=== PATIENT | female | born 1995 | race Caucasian/White ===

== ENCOUNTER 2018-08-13 13:29 | Observation (INO) | payer MEDICARE, MEDICAID ==
[2018-08-13] MEDS ORDERED: Ondansetron 4 MG/2 ML SDV IVPUSH ONE ×2 (14:21→16:26)
--- NOTE | 2018-08-13 14:27 | EDM.PDOC ---
ED HPI GENERAL MEDICAL PROBLEM - General Chief Complaint: Gastrointestinal Problem Stated Complaint: ADVERSE REACTION TO MEDS Time Seen by Provider: 08/13/18 14:27 Source of Information: Reports: Patient History Limitations: Reports: No Limitations - History of Present Illness INITIAL COMMENTS - FREE TEXT/NARRATIVE: pt arrived with very severe diarrhea. She is chilling. Her stool has been completly watery. She has had about 12 stools prior to arriving. Onset: Sudden Duration: Hour(s): Location: Reports: Abdomen Associated Symptoms: Reports: Nausea/Vomiting, Other (severe diarrhea. ) Abdominal Pain Score (Numeric/FACES): 5 - Related Data Allergies Allergy/AdvReac Type Severity Reaction Status Date / Time No Known Allergies Allergy Verified 08/13/18 14:03 Past Medical History HEENT History: Reports: Other (See Below) Other HEENT History: freq tonsilitis will have t and a on 2018 [employer] History: Reports: - Past Surgical History GI Surgical History: Reports: Appendectomy, Cholecystectomy Female Surgical History: Reports: Section Social & Family History - Tobacco Use Smoking Status *Q: Former Smoker Years of Tobacco use: 4 Used Tobacco, but Quit: Yes Month/Year Tobacco Last Used: 09/2018 Second Hand Smoke Exposure: No - Caffeine Use Caffeine Use: Reports: None - Recreational Drug Use Recreational Drug Use: Yes Drug Use in Last 12 Months: No Recreational Drug Type: Reports: Marijuana/Hashish Recreational Drug Last Use: 2007 ED ROS GENERAL - Review of Systems Review Of Systems: See Below Constitutional: Reports: Decreased Appetite, Other (pt has been vomiting all day. ) HEENT: Reports: No Symptoms Respiratory: Reports: No Symptoms Cardiovascular: Reports: No Symptoms Endocrine: Reports: No Symptoms GI/Abdominal: Reports: Diarrhea, Nausea, Vomiting : Reports: No Symptoms Musculoskeletal: Reports: No Symptoms Skin: Reports: No Symptoms Neurological: Reports: No Symptoms ED EXAM, GI/ABD - Physical Exam Exam: See Below Text/Narrative:: pt arrived with diarrhea that is almost constant. She has not held fluids down all day. Exam Limited By: No Limitations General Appearance: Alert, Moderate Distress Ears: Normal TMs Nose: Normal Inspection Throat/Mouth: Normal Inspection Head: Atraumatic Neck: Normal Inspection Respiratory/Chest: No Respiratory Distress Cardiovascular: Regular Rate, Rhythm GI/Abdominal Exam: Soft, Tender (Female) Exam: Deferred Rectal (Female) Exam: Deferred Back Exam: Normal Inspection Extremities: Normal Inspection Neurological: Alert, Oriented Course - Vital Signs Last Recorded V/S: Last Vital Signs Temp 37.2 C 08/13/18 17:01 Pulse 111 H 08/13/18 17:01 Resp 20 08/13/18 17:01 BP 126/73 08/13/18 17:01 Pulse Ox 95 08/13/18 17:01 - Orders/Labs/Meds Orders: Active Orders 24 hr Category Date Time Status Chest 1V Frontal [CR] Stat Exams 08/13/18 17:27 Taken CULTURE STOOL + SHIGATOX [RM] Stat Lab 08/13/18 17:42 Ordered INFLUENZA A+B AG SCREEN [RM] Stat Lab 08/13/18 17:24 Ordered LACTIC ACID [CHEM] Stat Lab 08/13/18 17:47 Ordered Sodium Chloride 0.9% [Normal Saline] 1,000 ml Med 08/13/18 14:30 Active IV ASDIRECTED Sodium Chloride 0.9% [Normal Saline] 1,000 ml Med 08/13/18 16:30 Active IV ASDIRECTED Sodium Chloride 0.9% [Normal Saline] 1,000 ml Med 08/13/18 18:15 Active IV ASDIRECTED Medication Orders Sodium Chloride (Normal Saline) 1,000 mls @ 999 mls/hr IV ASDIRECTED LUDA Last Admin: 08/13/18 14:32 Dose: 999 mls/hr Sodium Chloride (Normal Saline) 1,000 mls @ 999 mls/hr IV ASDIRECTED [facility] Last Admin: 08/13/18 17:01 Dose: 999 mls/hr Sodium Chloride (Normal Saline) 1,000 mls @ 350 mls/hr IV ASDIRECTED [facility] Labs: Laboratory Tests 08/13/18 08/13/18 08/13/18 Range/Units 14:20 14:20 15:27 WBC 12.9 H (4.5-11.0) K/uL RBC 6.12 H (3.30-5.50) M/uL Hgb 17.1 H (12.0-15.0) g/dL Hct 50.1 H (36.0-48.0) % MCV 82 (80-98) fL MCH 28 (27-31) pg MCHC 34 (32-36) % Plt Count 298 (150-400) K/uL Neut % (Auto) 86 H (36-66) % Lymph % (Auto) 6 L (24-44) % [place] % (Auto) 7 H (2-6) % Eos % (Auto) 0 L (2-4) % Baso % (Auto) 0 (0-1) % Sodium 139 L (140-148) mmol/L Potassium 3.7 (3.6-5.2) mmol/L Chloride 101 (100-108) mmol/L Carbon Dioxide 23 (21-32) mmol/L Anion Gap 18.7 H (5.0-14.0) mmol/L BUN 15 (7-18) mg/dL Creatinine 0.9 (0.6-1.0) mg/dL Est Cr Clr Drug Dosing 97.23 mL/min Estimated GFR (MDRD) > 60 (>60) Glucose 118 H (74-106) mg/dL Calcium 10.5 H (8.5-10.1) mg/dL Total Bilirubin 1.1 H (0.2-1.0) mg/dL AST 16 (15-37) U/L ALT 27 (12-78) U/L Alkaline Phosphatase 90 (46-116) U/L Total Protein 9.2 H (6.4-8.2) g/dL Albumin 4.8 (3.4-5.0) g/dL Globulin 4.4 H (2.3-3.5) g/dL Albumin/Globulin Ratio 1.1 L (1.2-2.2) Urine Color Yellow Urine Appearance Slightly cloudy Urine pH 5.0 (4.5-8.0) Ur Specific [place] 1.030 (1.008-1.030) Urine Protein Negative (NEGATIVE) mg/dL Urine Glucose (UA) Normal (NEGATIVE) mg/dL Urine Ketones 15 H (NEGATIVE) mg/dL Urine Occult Blood Small (NEGATIVE) Urine Nitrite Negative (NEGATIVE) Urine Bilirubin Negative (NEGATIVE) Urine Urobilinogen Normal (NORMAL) mg/dL Ur Leukocyte Esterase Negative (NEGATIVE) Urine RBC 0-5 (0-5) Urine WBC Not seen (0-5) Ur Epithelial Cells Many Amorphous Sediment Many Urine Bacteria Few Urine Mucus Many Urine Other See note Meds: Medications Generic Name Dose Route Start Last Admin Trade Name Freq PRN Reason Stop Dose Admin Sodium Chloride 1,000 mls @ 999 mls/hr 08/13/18 14:30 08/13/18 14:32 Normal Saline IV 999 mls/hr ASDIRECTED LUDA Administration Sodium Chloride 1,000 mls @ 999 mls/hr 08/13/18 16:30 08/13/18 17:01 Normal Saline IV 999 mls/hr ASDIRECTED LUDA Administration Sodium Chloride 1,000 mls @ 350 mls/hr 08/13/18 18:15 Normal Saline IV ASDIRECTED LUDA Discontinued Medications Generic Name Dose Route Start Last Admin Trade Name Rekha PRN Reason Stop Dose Admin Ketorolac Tromethamine 30 mg 08/13/18 16:26 08/13/18 17:03 Toradol IVPUSH 08/13/18 16:27 30 mg ONETIME ONE Administration Ondansetron HCl 4 mg 08/13/18 14:21 08/13/18 14:31 Zofran IVPUSH 08/13/18 14:22 4 mg ONETIME ONE Administration Ondansetron HCl 4 mg 08/13/18 16:26 08/13/18 16:58 Zofran IVPUSH 08/13/18 16:27 4 mg ONETIME ONE Administration - Re-Assessments/Exams Free Text/Narrative Re-Assessment/Exam: 08/13/18 17:37 pt had a stool for clostrium which was neg. She has had about 8 stools since she gor here. She has still been quite nauseated. She has received Departure - Departure Time of Disposition: 18:02 Disposition: Admitted As Inpatient 64 Condition: Fair Clinical Impression: Dehydration, Flu, Reaction, drug, adverse - Discharge Information Referrals: Darcie Otoole MD [Primary Care Provider] - Forms: ED Department Discharge Care Plan Goals: admit to [facility]. - My Orders Last 24 Hours: My Active Orders 08/13/18 14:30 Sodium Chloride 0.9% [Normal Saline] 1,000 ml IV ASDIRECTED 08/13/18 16:30 Sodium Chloride 0.9% [Normal Saline] 1,000 ml IV ASDIRECTED 08/13/18 17:24 INFLUENZA A+B AG SCREEN [RM] Stat 08/13/18 17:27 Chest 1V Frontal [CR] Stat 08/13/18 17:42 CULTURE STOOL + SHIGATOX [RM] Stat 08/13/18 17:47 LACTIC ACID [CHEM] Stat 08/13/18 18:15 Sodium Chloride 0.9% [Normal Saline] 1,000 ml IV ASDIRECTED - Assessment/Plan Last 24 Hours: My Active Orders 08/13/18 14:30 Sodium Chloride 0.9% [Normal Saline] 1,000 ml IV ASDIRECTED 08/13/18 16:30 Sodium Chloride 0.9% [Normal Saline] 1,000 ml IV ASDIRECTED 08/13/18 17:24 INFLUENZA A+B AG SCREEN [RM] Stat 08/13/18 17:27 Chest 1V Frontal [CR] Stat 08/13/18 17:42 CULTURE STOOL + SHIGATOX [RM] Stat 08/13/18 17:47 LACTIC ACID [CHEM] Stat 08/13/18 18:15 Sodium Chloride 0.9% [Normal Saline] 1,000 ml IV ASDIRECTED
[2018-08-13] MEDS ORDERED: Sodium Chloride 0.9% 1,000 ML IV SCH ×3 (14:30→18:15)
[2018-08-13] MEDS ORDERED: Ketorolac 30 MG/ML SDV IVPUSH ONE (16:26)
--- NOTE | 2018-08-13 19:19 | PCM.HP ---
H&P History of Present Illness - General Date of Service: 08/13/18 Admit Problem/Dx: Admission Diagnosis/Problem Admission Diagnosis/Problem Dehydration Source of Information: Patient History Limitations: Reports: No Limitations - History of Present Illness Initial Comments - Free Text/Narative: Nausea, vomiting and diarrhea; this is a 22 year old female presented to ER for evaluation of symptoms. She had a pre-op on Friday, Aug 10, 2018. She was given script for Augmentin to treat a sinus and tonsil infection. She then developed nausea and diarrhea, which progressed to vomiting all day. Today. she was weak, didn't feel well and came to ER for evaluation. while in ER had 6 water stool and emesis once. Labs show dehydration, negative influenza A and B, negative C-Diff. plan to admit for IV fluids and anti-nausea medications. Patient has a [employer] worker for her Mental Health disabilities. Onset of Symptoms: Reports: Gradual Symptom Onset Date: 08/10/18 (start Augmentin) Duration of Symptoms: Reports: Day(s):, Getting Worse Location: Reports: Generalized Severity: Moderate Improves with: Reports: Medication, Other (given IV fluids and medication in ER improved) Worsens with: Reports: None Context: Reports: Other (nausea, vomiting, diarrhea after taking Augmentin.) Associated Symptoms: Reports: Fever/Chills, Headaches, Nausea/Vomiting, Weakness Abdominal Pain Score (Numeric/FACES): 5 - Related Data Allergies/Adverse Reactions: Allergies Allergy/AdvReac Type Severity Reaction Status Date / Time No Known Allergies Allergy Verified 08/13/18 14:03 Home Medications: Home Meds Amoxicillin/Clavulanate K [Augmentin 875-125 MG] 1 tab PO BID 08/13/18 [History] ClonazePAM [KlonoPIN] 0.25 mg PO DAILY 08/13/18 [History] ClonazePAM [KlonoPIN] 0.5 mg PO BEDTIME 08/13/18 [History] Pantoprazole [ProTONIX] 40 mg PO DAILY 08/13/18 [History] Polyethylene Glycol 3350 [MiraLAX] 1 dose PO ASDIRECTED 08/13/18 [History] Past Medical History HEENT History: Reports: Other (See Below) Other HEENT History: freq tonsilitis will have t and a on 2018 X [employer] History: Reports: - Past Surgical History GI Surgical History: Reports: Appendectomy, Cholecystectomy Female Surgical History: Reports: Section Social & Family History - Tobacco Use Smoking Status *Q: Former Smoker Years of Tobacco use: 4 Used Tobacco, but Quit: Yes Month/Year Tobacco Last Used: 09/2018 Second Hand Smoke Exposure: No - Caffeine Use Caffeine Use: Reports: None - Recreational Drug Use Recreational Drug Use: Yes Drug Use in Last 12 Months: No Recreational Drug Type: Reports: Marijuana/Hashish Recreational Drug Last Use: 2007 - Living Situation & Occupation Living situation: Reports: Single, with Family Occupation: Other (lives in [place] with her Boyfriend and her 5 year old son.) H&P Review of Systems - Review of Systems: Review Of Systems: See Below General: Reports: Chills, Malaise, Weakness HEENT: Reports: Headaches, Sore Throat (chronic tonsillitis, scheduled for surgery on 08/26/2018) Pulmonary: Reports: No Symptoms Cardiovascular: Reports: No Symptoms Gastrointestinal: Reports: Diarrhea (watery diarrhea x 14 , vomiting for hours at home and once in ER), Nausea, Vomiting Genitourinary: Reports: No Symptoms, Other (last menses 07/31/2019, no control) Musculoskeletal: Reports: No Symptoms Skin: Reports: No Symptoms Psychiatric: Reports: Anxiety (chronic) Neurological: Reports: Headache Hematologic/Lymphatic: Reports: No Symptoms Immunologic: Reports: No Symptoms Exam - Exam Exam: See Below - Vital Signs Vital Signs: Last Vital Signs Temp 37.2 C 08/13/18 17:01 Pulse 111 H 08/13/18 17:01 Resp 20 08/13/18 17:01 BP 126/73 08/13/18 17:01 Pulse Ox 95 08/13/18 17:01 Weight: 95.4 kg - Exam General: Alert, Oriented, Cooperative HEENT: PERRLA, Conjunctiva Clear, EACs Clear, EOMI, Hearing Intact, Mucosa Moist & [place], Nares Patent, Normal Nasal Septum, Posterior Pharynx Clear, TMs Clear, Other (tonsil enlargement, + white exudate is present) Neck: Supple, Trachea Midline, Lymphadenopathy (bilateral, non-tender) Lungs: Clear to Auscultation, Normal Respiratory Effort Cardiovascular: Regular Rate, Regular Rhythm, Normal S1, Normal S2 GI/Abdominal Exam: Normal Bowel Sounds, Soft, Non-Tender, No Organomegaly, No Distention, No Abnormal Bruit, No Mass, Pelvis Stable (Female) Exam: Deferred Rectal (Female) Exam: Deferred Back Exam: Normal Inspection, Full Range of Motion Extremities: Normal Inspection, Normal Range of Motion, Non-Tender, No Pedal Edema, Normal Capillary Refill Peripheral Pulses: 2+: Radial (L), Radial (R) Skin: Warm, Dry, Intact Neurological: Cranial Nerves Intact, Reflexes Equal Bilateral, Strength Equal Bilateral, Normal Gait, Normal Speech, Normal Tone, Sensation Intact Neuro Extensive - Mental Status: Alert, Oriented x3, Normal Mood/Affect, Normal Cognition, Memory Intact Neuro Extensive - Motor, Sensory, Reflexes: CN II-XII Intact, Normal Gait, Normal Reflexes Psychiatric: Alert, Normal Affect, Normal Mood - Patient Data Lab Results Last 24 hrs: Laboratory Results - last 24 hr 08/13/18 08/13/18 08/13/18 Range/Units 14:20 14:20 15:27 WBC 12.9 H (4.5-11.0) K/uL RBC 6.12 H (3.30-5.50) M/uL Hgb 17.1 H (12.0-15.0) g/dL Hct 50.1 H (36.0-48.0) % MCV 82 (80-98) fL MCH 28 (27-31) pg MCHC 34 (32-36) % Plt Count 298 (150-400) K/uL Neut % (Auto) 86 H (36-66) % Lymph % (Auto) 6 L (24-44) % [place] % (Auto) 7 H (2-6) % Eos % (Auto) 0 L (2-4) % Baso % (Auto) 0 (0-1) % Sodium 139 L (140-148) mmol/L Potassium 3.7 (3.6-5.2) mmol/L Chloride 101 (100-108) mmol/L Carbon Dioxide 23 (21-32) mmol/L Anion Gap 18.7 H (5.0-14.0) mmol/L BUN 15 (7-18) mg/dL Creatinine 0.9 (0.6-1.0) mg/dL Est Cr Clr Drug Dosing 97.23 mL/min Estimated GFR (MDRD) > 60 (>60) Glucose 118 H (74-106) mg/dL Lactic Acid (0.4-2.0) mmol/L Calcium 10.5 H (8.5-10.1) mg/dL Total Bilirubin 1.1 H (0.2-1.0) mg/dL AST 16 (15-37) U/L ALT 27 (12-78) U/L Alkaline Phosphatase 90 (46-116) U/L Total Protein 9.2 H (6.4-8.2) g/dL Albumin 4.8 (3.4-5.0) g/dL Globulin 4.4 H (2.3-3.5) g/dL Albumin/Globulin Ratio 1.1 L (1.2-2.2) Urine Color Yellow Urine Appearance Slightly cloudy Urine pH 5.0 (4.5-8.0) Ur Specific [place] 1.030 (1.008-1.030) Urine Protein Negative (NEGATIVE) mg/dL Urine Glucose (UA) Normal (NEGATIVE) mg/dL Urine Ketones 15 H (NEGATIVE) mg/dL Urine Occult Blood Small (NEGATIVE) Urine Nitrite Negative (NEGATIVE) Urine Bilirubin Negative (NEGATIVE) Urine Urobilinogen Normal (NORMAL) mg/dL Ur Leukocyte Esterase Negative (NEGATIVE) Urine RBC 0-5 (0-5) Urine WBC Not seen (0-5) Ur Epithelial Cells Many Amorphous Sediment Many Urine Bacteria Few Urine Mucus Many Urine Other See note 08/13/18 Range/Units 17:47 WBC (4.5-11.0) K/uL RBC (3.30-5.50) M/uL Hgb (12.0-15.0) g/dL Hct (36.0-48.0) % MCV (80-98) fL MCH (27-31) pg MCHC (32-36) % Plt Count (150-400) K/uL Neut % (Auto) (36-66) % Lymph % (Auto) (24-44) % [place] % (Auto) (2-6) % Eos % (Auto) (2-4) % Baso % (Auto) (0-1) % Sodium (140-148) mmol/L Potassium (3.6-5.2) mmol/L Chloride (100-108) mmol/L Carbon Dioxide (21-32) mmol/L Anion Gap (5.0-14.0) mmol/L BUN (7-18) mg/dL Creatinine (0.6-1.0) mg/dL Est Cr Clr Drug Dosing mL/min Estimated GFR (MDRD) (>60) Glucose (74-106) mg/dL Lactic Acid 2.4 H (0.4-2.0) mmol/L Calcium (8.5-10.1) mg/dL Total Bilirubin (0.2-1.0) mg/dL AST (15-37) U/L ALT (12-78) U/L Alkaline Phosphatase (46-116) U/L Total Protein (6.4-8.2) g/dL Albumin (3.4-5.0) g/dL Globulin (2.3-3.5) g/dL Albumin/Globulin Ratio (1.2-2.2) Urine Color Urine Appearance Urine pH (4.5-8.0) Ur Specific [place] (1.008-1.030) Urine Protein (NEGATIVE) mg/dL Urine Glucose (UA) (NEGATIVE) mg/dL Urine Ketones (NEGATIVE) mg/dL Urine Occult Blood (NEGATIVE) Urine Nitrite (NEGATIVE) Urine Bilirubin (NEGATIVE) Urine Urobilinogen (NORMAL) mg/dL Ur Leukocyte Esterase (NEGATIVE) Urine RBC (0-5) Urine WBC (0-5) Ur Epithelial Cells Amorphous Sediment Urine Bacteria Urine Mucus Urine Other Result Diagrams: 08/13/18 14:20 08/13/18 14:20 Jeff Results Last 24 hrs: Microbiology 08/13/18 17:24 Influenza Type A Antigen Screen - Final Nasal Aspirate, Left NEGATIVE INFLUENZA A VIRUS AG Influenza Type B Antigen Screen - Final NEGATIVE INFLUENZA B VIRUS AG 08/13/18 14:28 Clostridium difficile (PCR) - Final Stool / Feces - Stool, Liquid NEGATIVE CDIFF TOXIN - Problem List (1) Dehydration SNOMED Code(s): 38982866 ICD Code: E86.0 - DEHYDRATION Status: Acute Priority: High Current Visit: Yes Problem List Initiated/Reviewed/Updated: Yes Orders Last 24hrs: Active Orders 24 hr Category Date Time Status Patient Status Manage Transfer [TRANSFER] Routine ADT 08/13/18 19:03 Active Chest 1V Frontal [CR] Stat Exams 08/13/18 17:27 Taken CULTURE STOOL + SHIGATOX [RM] Stat Lab 08/13/18 18:23 Received Sodium Chloride 0.9% [Normal Saline] 1,000 ml Med 08/13/18 14:30 Active IV ASDIRECTED Sodium Chloride 0.9% [Normal Saline] 1,000 ml Med 08/13/18 16:30 Active IV ASDIRECTED Sodium Chloride 0.9% [Normal Saline] 1,000 ml Med 08/13/18 18:15 Active IV ASDIRECTED Resuscitation Status Routine Resus Stat 08/13/18 19:04 Ordered Medication Orders Sodium Chloride (Normal Saline) 1,000 mls @ 999 mls/hr IV ASDIRECTED [facility] Last Admin: 08/13/18 14:32 Dose: 999 mls/hr Sodium Chloride (Normal Saline) 1,000 mls @ 999 mls/hr IV ASDIRECTED [facility] Last Admin: 08/13/18 17:01 Dose: 999 mls/hr Sodium Chloride (Normal Saline) 1,000 mls @ 350 mls/hr IV ASDIRECTED [facility] Last Admin: 08/13/18 18:04 Dose: 350 mls/hr Assessment/Plan Comment:: ASSESSMENT / PLAN -Nausea, vomiting and diarrhea: this is a 22 year old female was treated in ER for nausea, vomiting and diarrhea. She was seen in clinic for a pre-op physical on Aug 10, 2018 she was started on Augmentin. She took her first dose that evening, the next days began to have diarrhea and upset stomache, symptoms worsen each day, with today she experienced 8 watery stool and continuous vomiting. She came to ER for evaluation, had 6 more water stools and vomited once. She was given 3 liter of fluids and Zofran x2, She is now feeling better but continues to have diarrhea. Plan Dehydration, nausea, vomiting, diarrhea in a 22 year old female. -Admit Observation for fluids -IV fluids for rehydration LR at 125 mL per hour -Zofran 4 mg IV every 4 hours prn nausea -Advise to notify nurses of any chest pain or other symptoms -And a.m. labs: CBC, BMP Maintenance issues -Orders home meds: has home medication -Nutrition: clear liquid diet -Haq catheter not indicated at this time -DVT: ambulater -GI Prophalaxis; Protonix 40mg daily CODE STATUS: Full Admission status: Admit to Observation -I expect this patient to stay less than 24 hours, not to exceed 96 hours for evaluation and management of this problem. Disposition: home Primary care provider:Hospitalist: Dr. Otoole Hospitalist: Dr. Sanchez
[2018-08-13] MEDS ORDERED: Albuterol/Ipratropium 3.0-0.5 MG/3 ML Neb Soln NEB PRN (19:33)
[2018-08-13] MEDS ORDERED: Ibuprofen 600 MG Tab PO PRN (19:33)
[2018-08-13] MEDS ORDERED: Acetaminophen 325 MG Tab PO PRN (19:33)
[2018-08-13] MEDS ORDERED: LORazepam 2 MG/ML SDV IV PRN (19:33)
[2018-08-13] MEDS ORDERED: Albuterol 0.083% 2.5 MG/3 ML Neb Soln NEB PRN (19:33)
[2018-08-13] MEDS ORDERED: Ondansetron 4 MG Tab.DIS PO PRN (19:33)
[2018-08-13] MEDS ORDERED: oxyCODONE 5 MG Tab PO PRN (19:33)
[2018-08-13] MEDS ORDERED: ClonazePAM 0.5 MG Tab PO SCH (21:00)
[2018-08-13] MEDS ORDERED: Ketorolac 30 MG/ML SDV IVPUSH PRN (22:30)
[2018-08-13] MEDS: Lactated Ringers 1,000 ML IV SCH (23:08)
[2018-08-13] MEDS ORDERED: Sodium Chloride 0.65% Nasal Spray 45 ML Bottle NAS PRN (23:32)
[2018-08-14] MEDS: Lactated Ringers 1,000 ML IV SCH (07:01)
[2018-08-14] MEDS ORDERED: Pantoprazole 40 MG Tab.CR PO SCH (07:30)
[2018-08-14] MEDS ORDERED: Potassium Chloride 20 MEQ Tab.ER PO ONE (09:00)
[2018-08-14] MEDS ORDERED: ClonazePAM 0.5 MG Tab PO SCH (09:00)
[2018-08-14] MEDS ORDERED: Simethicone 80 MG Tab.Chew PO ONE (12:17)
--- NOTE | 2018-08-14 12:21 | PCM.DCSUM1 ---
Discharge Summary - Hospital Course Brief History: Ms. Moss is a 22-year-old woman who was admitted through the emergency department with nausea, vomiting, and diarrhea causing dehydration, secondary to underlying viral gastroenteritis. - Discharge Data Discharge Date: 08/14/18 Discharge Disposition: Home, Self-Care 01 Condition: Fair - Discharge Diagnosis/Problem(s) (1) Viral gastroenteritis SNOMED Code(s): 685240138 ICD Code: A08.4 - VIRAL INTESTINAL INFECTION, UNSPECIFIED Status: Acute Current Visit: Yes (2) Nausea and vomiting SNOMED Code(s): 18529029 ICD Code: R11.2 - NAUSEA WITH VOMITING, UNSPECIFIED Status: Acute Current Visit: Yes (3) Diarrhea SNOMED Code(s): 01049726 ICD Code: R19.7 - DIARRHEA, UNSPECIFIED Status: Acute Current Visit: Yes (4) Dehydration SNOMED Code(s): 07437212 ICD Code: E86.0 - DEHYDRATION Status: Acute Priority: High Current Visit: Yes - Patient Summary/Data Hospital Course: Ms. Moss is a 22 year old female presented to ER for evaluation of symptoms of weakness, nausea, vomiting, and diarrhea. She had a pre-op on Friday, Aug. She was given script for Augmentin to treat a sinus and tonsil infection. She then developed nausea and diarrhea, which progressed to vomiting all day. Today she was weak, didn't feel well and came to ER for evaluation, while in ER had 6 water stool and emesis once. Labs show dehydration, negative influenza A and B, negative C-Diff. plan to admit for IV fluids and anti- nausea medications. On admission she was given IV fluids for hydration as well as medication as needed for nausea. By the following morning she was feeling significantly improved with resolution of nausea and vomiting. Diarrhea persisted but was decreased in frequency and amount compared to prior to admission and while she was in the emergency department. She will be discharged home on a soft low residue diet and activity as tolerated. Follow-up will be with primary care as needed. - Patient Instructions Diet: GI Soft/Low Residue/Low Fiber Activity: As Tolerated Other/Special Instructions: Follow-up with primary care provider as needed - Discharge Plan *PRESCRIPTION DRUG MONITORING PROGRAM REVIEWED*: Not Applicable *COPY OF PRESCRIPTION DRUG MONITORING REPORT IN PATIENT ANY: Not Applicable Prescriptions/Med Rec: Ondansetron [Zofran ODT] 4 mg PO Q6H PRN #8 tab.dis PRN Reason: Nausea Home Medications: Home Meds Amoxicillin/Clavulanate K [Augmentin 875-125 MG] 1 tab PO BID 08/13/18 [History] ClonazePAM [KlonoPIN] 0.25 mg PO DAILY 08/13/18 [History] ClonazePAM [KlonoPIN] 0.5 mg PO BEDTIME 08/13/18 [History] Pantoprazole [ProTONIX] 40 mg PO DAILY 08/13/18 [History] Polyethylene Glycol 3350 [MiraLAX] 1 dose PO ASDIRECTED 08/13/18 [History] Ondansetron [Zofran ODT] 4 mg PO Q6H PRN #8 tab.dis 08/14/18 [Rx] Referrals: Darcie Otoole MD [Primary Care Provider] - - Discharge Summary/Plan Comment DC Time >30 min.: No - Patient Data Vitals - Most Recent: Last Vital Signs Temp 98.1 F 08/14/18 11:00 Pulse 80 08/14/18 07:00 Resp 18 08/14/18 07:00 BP 105/61 08/14/18 07:00 Pulse Ox 99 08/14/18 07:00 Weight - Most Recent: 210 lb 5.136 oz I&O - Last 24 hours: Intake & Output 08/13/18 08/14/18 08/14/18 22:59 06:59 14:59 Intake Total 1999 2021 158 Balance 1999 2021 1585 Lab Results - Last 24 hrs: Laboratory Results - last 24 hr 08/13/18 08/13/18 08/13/18 Range/Units 14:20 14:20 15:27 WBC 12.9 H (4.5-11.0) K/uL RBC 6.12 H (3.30-5.50) M/uL Hgb 17.1 H (12.0-15.0) g/dL Hct 50.1 H (36.0-48.0) % MCV 82 (80-98) fL MCH 28 (27-31) pg MCHC 34 (32-36) % Plt Count 298 (150-400) K/uL Neut % (Auto) 86 H (36-66) % Lymph % (Auto) 6 L (24-44) % [place] % (Auto) 7 H (2-6) % Eos % (Auto) 0 L (2-4) % Baso % (Auto) 0 (0-1) % Sodium 139 L (140-148) mmol/L Potassium 3.7 (3.6-5.2) mmol/L Chloride 101 (100-108) mmol/L Carbon Dioxide 23 (21-32) mmol/L Anion Gap 18.7 H (5.0-14.0) mmol/L BUN 15 (7-18) mg/dL Creatinine 0.9 (0.6-1.0) mg/dL Est Cr Clr Drug Dosing 97.23 mL/min Estimated GFR (MDRD) > 60 (>60) Glucose 118 H (74-106) mg/dL Lactic Acid (0.4-2.0) mmol/L Calcium 10.5 H (8.5-10.1) mg/dL Total Bilirubin 1.1 H (0.2-1.0) mg/dL AST 16 (15-37) U/L ALT 27 (12-78) U/L Alkaline Phosphatase 90 (46-116) U/L Total Protein 9.2 H (6.4-8.2) g/dL Albumin 4.8 (3.4-5.0) g/dL Globulin 4.4 H (2.3-3.5) g/dL Albumin/Globulin Ratio 1.1 L (1.2-2.2) Urine Color Yellow Urine Appearance Slightly cloudy Urine pH 5.0 (4.5-8.0) Ur Specific [place] 1.030 (1.008-1.030) Urine Protein Negative (NEGATIVE) mg/dL Urine Glucose (UA) Normal (NEGATIVE) mg/dL Urine Ketones 15 H (NEGATIVE) mg/dL Urine Occult Blood Small (NEGATIVE) Urine Nitrite Negative (NEGATIVE) Urine Bilirubin Negative (NEGATIVE) Urine Urobilinogen Normal (NORMAL) mg/dL Ur Leukocyte Esterase Negative (NEGATIVE) Urine RBC 0-5 (0-5) Urine WBC Not seen (0-5) Ur Epithelial Cells Many Amorphous Sediment Many Urine Bacteria Few Urine Mucus Many Urine Other See note 08/13/18 08/14/18 08/14/18 Range/Units 17:47 05:00 05:00 WBC 3.9 L (4.5-11.0) K/uL RBC 4.35 (3.30-5.50) M/uL Hgb 12.3 D (12.0-15.0) g/dL Hct 36.8 (36.0-48.0) % MCV 85 (80-98) fL MCH 28 (27-31) pg MCHC 33 (32-36) % Plt Count 162 (150-400) K/uL Neut % (Auto) 75 H (36-66) % Lymph % (Auto) 13 L (24-44) % [place] % (Auto) 12 H (2-6) % Eos % (Auto) 0 L (2-4) % Baso % (Auto) 0 (0-1) % Sodium 142 (140-148) mmol/L Potassium 3.5 L (3.6-5.2) mmol/L Chloride 107 (100-108) mmol/L Carbon Dioxide 27 (21-32) mmol/L Anion Gap 11.5 (5.0-14.0) mmol/L BUN 11 (7-18) mg/dL Creatinine 0.7 (0.6-1.0) mg/dL Est Cr Clr Drug Dosing 125.01 mL/min Estimated GFR (MDRD) > 60 (>60) Glucose 102 (74-106) mg/dL Lactic Acid 2.4 H (0.4-2.0) mmol/L Calcium 8.1 L D (8.5-10.1) mg/dL Total Bilirubin (0.2-1.0) mg/dL AST (15-37) U/L ALT (12-78) U/L Alkaline Phosphatase (46-116) U/L Total Protein (6.4-8.2) g/dL Albumin (3.4-5.0) g/dL Globulin (2.3-3.5) g/dL Albumin/Globulin Ratio (1.2-2.2) Urine Color Urine Appearance Urine pH (4.5-8.0) Ur Specific [place] (1.008-1.030) Urine Protein (NEGATIVE) mg/dL Urine Glucose (UA) (NEGATIVE) mg/dL Urine Ketones (NEGATIVE) mg/dL Urine Occult Blood (NEGATIVE) Urine Nitrite (NEGATIVE) Urine Bilirubin (NEGATIVE) Urine Urobilinogen (NORMAL) mg/dL Ur Leukocyte Esterase (NEGATIVE) Urine RBC (0-5) Urine WBC (0-5) Ur Epithelial Cells Amorphous Sediment Urine Bacteria Urine Mucus Urine Other COLE Results - Last 24 hrs: Microbiology 08/13/18 18:23 Stool Culture - Preliminary Stool / Feces NORMAL ENTERIC CAROL 1 DAY 08/13/18 17:24 Influenza Type A Antigen Screen - Final Nasal Aspirate, Left NEGATIVE INFLUENZA A VIRUS AG Influenza Type B Antigen Screen - Final NEGATIVE INFLUENZA B VIRUS AG 08/13/18 14:28 Clostridium difficile (PCR) - Final Stool / Feces - Stool, Liquid NEGATIVE CDIFF TOXIN Med Orders - Current: Current Medications Acetaminophen (Tylenol) 650 mg PO Q4H PRN PRN Reason: Pain (Mild 1-3)/fever Last Admin: 08/13/18 20:57 Dose: 650 mg Albuterol (Proventil Neb Soln) 2.5 mg NEB Q4H PRN PRN Reason: Shortness Of Breath/wheezing Albuterol/Ipratropium (Duoneb 3.0-0.5 Mg/3 Ml) 3 ml NEB QID PRN PRN Reason: Shortness Of Breath/wheezing Clonazepam (Klonopin) 0.25 mg PO DAILY [facility] Last Admin: 08/14/18 09:20 Dose: 0.25 mg Clonazepam (Klonopin) 0.5 mg PO BEDTIME [facility] Last Admin: 08/13/18 20:58 Dose: 0.5 mg Lactated Ringer's (Ringers, Lactated) 1,000 mls @ 125 mls/hr IV ASDIRECTED [facility] Last Admin: 08/14/18 07:01 Dose: 125 mls/hr Ibuprofen (Motrin) 600 mg PO Q6H PRN PRN Reason: Pain/Fever Ketorolac Tromethamine (Toradol) 30 mg IVPUSH Q6H PRN PRN Reason: Pain (moderate 4-6) Stop: 08/18/18 16:00 Last Admin: 08/13/18 23:30 Dose: 30 mg Lorazepam (Ativan) 1 mg IV Q6H PRN PRN Reason: Nausea/Vomiting Ondansetron HCl (Zofran Odt) 4 mg PO Q6H PRN PRN Reason: Nausea able to take PO Last Admin: 08/13/18 20:57 Dose: 4 mg Oxycodone HCl (Oxycodone) 5 mg PO Q4H PRN PRN Reason: Pain (moderate 4-6) Pantoprazole Sodium (Protonix) 40 mg PO ACBREAKFAST [facility] Last Admin: 08/14/18 09:14 Dose: 40 mg Sodium Chloride ([place] Nasal [place]) 0 ml LA Q2H PRN PRN Reason: Dryness Last Admin: 08/13/18 23:57 Dose: 1 spr Discontinued Medications Sodium Chloride (Normal Saline) 1,000 mls @ 999 mls/hr IV ASDIRECTED [facility] Last Admin: 08/13/18 14:32 Dose: 999 mls/hr Sodium Chloride (Normal Saline) 1,000 mls @ 999 mls/hr IV ASDIRECTED [facility] Last Admin: 08/13/18 17:01 Dose: 999 mls/hr Sodium Chloride (Normal Saline) 1,000 mls @ 350 mls/hr IV ASDIRECTED [facility] Last Admin: 08/13/18 18:04 Dose: 350 mls/hr Ketorolac Tromethamine (Toradol) 30 mg IVPUSH ONETIME ONE Stop: 08/13/18 16:27 Last Admin: 08/13/18 17:03 Dose: 30 mg Ondansetron HCl (Zofran) 4 mg IVPUSH ONETIME ONE Stop: 08/13/18 14:22 Last Admin: 08/13/18 14:31 Dose: 4 mg Ondansetron HCl (Zofran) 4 mg IVPUSH ONETIME ONE Stop: 08/13/18 16:27 Last Admin: 08/13/18 16:58 Dose: 4 mg Potassium Chloride (Klor-Con M20) 40 meq PO ONETIME ONE Stop: 08/14/18 09:01 Last Admin: 08/14/18 09:15 Dose: 40 meq - Exam General: Reports: Alert, Oriented, Cooperative, No Acute Distress Lungs: Reports: Clear to Auscultation, Normal Respiratory Effort Cardiovascular: Reports: Regular Rate, Regular Rhythm, No Murmurs GI/Abdominal Exam: Soft, Non-Tender, No Organomegaly, No Distention Extremities: Non-Tender, No Pedal Edema
--- NOTE | 2018-08-14 13:01 | CR ---
Chest 1V Frontal FINDINGS: The heart and vascular structures are normal in appearance. No infiltrates or effusions are demonstrated. The skeletal structures are unremarkable. IMPRESSION: Negative exam.
== END 2018-08-14 13:14 | disposition home or self-care (01) ==
LOC: JP.ED 13:29 → JP.MS 19:03
PROVIDERS: ADMIT Hospitalist; ATTEND Hospitalist
DX: A08.4 Viral intestinal infection, unspecified (principal); E86.0 Dehydration; Z87.891 Personal history of nicotine dependence
CPT/HCPCS: 36415; 71045; 80048; 80053; 81001; 83605; 85025; 87046; 87493; 87804; 87899; 96361; 96374; 96375; 96376; 99285; A9270; J1885; J2405; J7030; J7120; 99217; 99218; G0378

== ENCOUNTER 2018-10-28 08:27 | Day surgery (SDC) | payer MEDICARE, MEDICAID ==
[~2018-10-28 08:27] MED LIST: Oxymetazoline 0.05% Nasal Spray 15 ML Bottle ONE; Povidone-Iodine 10% Soln 118.25 ML Bottle ONE
[2018-10-28] MEDS ORDERED: fentaNYL 250 MCG/5 ML SDV ONE ×2 (09:31→10:45)
[2018-10-28] MEDS: Sodium Chloride 0.9% 1,000 ML IV SCH ×2 (09:31→11:53)
[2018-10-28] MEDS ORDERED: Propofol 200 MG/20 ML SDV ONE (09:32)
[2018-10-28] MEDS ORDERED: Dexamethasone 4 MG/ML SDV ONE (09:32)
[2018-10-28] MEDS ORDERED: Rocuronium 50 MG/5 ML Vial ONE (09:32)
[2018-10-28] MEDS ORDERED: Glycopyrrolate 0.2 MG/ML 5 ML MDV ONE (09:32)
[2018-10-28] MEDS ORDERED: Neostigmine Methylsulfate 1 MG/ML 5 ML Syringe ONE (09:32)
[2018-10-28] MEDS ORDERED: Ondansetron 4 MG/2 ML SDV ONE (09:32)
[2018-10-28] MEDS ORDERED: Succinylcholine 200 MG/10 ML MDV ONE (09:34)
[2018-10-28] MEDS ORDERED: ceFAZolin 2 GM in Premix Bag 1 BAG IV ONE (10:00)
[2018-10-28] MEDS ORDERED: Dexamethasone 4 MG/ML 5 ML MDV IVPUSH ONE (10:00)
[2018-10-28] MEDS ORDERED: fentaNYL 100 MCG/2 ML SDV IVPUSH ONE ×2 (11:15→11:33)
[2018-10-28] MEDS ORDERED: Ondansetron 4 MG/2 ML SDV IVPUSH ONE (11:46)
[2018-10-28] MEDS ORDERED: Acetaminophen/HYDROcodone 108-2.5 MG/5 ML Soln 15 ML UD Cup PO PRN (12:36)
[2018-10-28] MEDS ORDERED: Morphine 2 MG/ML Syringe IVPUSH ONE (12:43)
--- NOTE | 2018-10-28 16:56 | OR ---
DATE OF PROCEDURE: 10/28/2018 PREOPERATIVE DIAGNOSIS: Chronic pharyngitis. POSTOPERATIVE DIAGNOSIS: Chronic pharyngitis. PROCEDURE PERFORMED: Tonsillectomy and adenoidectomy, primary, over 12 years of age. ANESTHESIA: General. ESTIMATED BLOOD LOSS: Minimal. DESCRIPTION OF PROCEDURE: After satisfactory anesthesia, Dontrell-Carson mouth gag was placed and soft palate retracted. Residual adenoid pad was seen occupying about 25% of the nasopharynx. The residual adenoid tissue suction coagulated clean. Turbinates were not enlarged. Deeply-seated tonsils were removed using the PEAK Plasma cutter technique. Minimal bleeding occurred. The patient had small plica triangularis. The persistent oozing from the adenoid bed was controlled with Afrin-soaked tonsil ball packing, followed by further suction cauterization. The patient was checked multiple times, also from retractor pressure, for any bleeding and after found to have none, she was extubated and transferred to recovery room in a stable condition. Discharge medications consist of Hycet for pain, cephalexin 500 mg four times a day for four days for antibiotic, and Zofran for nausea. Jovan Aquino MD /[id number]
== END 2018-10-28 15:15 | disposition home or self-care (01) ==
LOC: JP.SDS 08:27
PROVIDERS: ATTEND Otolaryngology
DX: J35.1 Hypertrophy of tonsils (principal); J31.2 Chronic pharyngitis; E66.9 Obesity, unspecified; Z68.33 Body mass index [BMI] 33.0-33.9, adult; K59.00 Constipation, unspecified; F41.9 Anxiety disorder, unspecified; F32.9 Major depressive disorder, single episode, unspecified; K21.9 Gastro-esophageal reflux disease without esophagitis; Z87.891 Personal history of nicotine dependence
CPT/HCPCS: 42821; 81025; 88304; A9270; J0330; J0690; J1100; J2270; J2405; J2704; J2710; J3010; J3490; J7030